=== PATIENT | male | born 1965 | race Two or more races ===

== ENCOUNTER 2019-01-10 21:45 | Emergency (ER) | payer SELFPAY ==
[~2019-01-10] VITALS: Ht 167.6 cm; Wt 77.1 kg
--- NOTE | 2019-01-10 21:45 | NUR ---
ED Nurse Note: Patient was medicate , sleeping.
[2019-01-10 22:05] VITALS: BP 139/87
--- NOTE | 2019-01-10 22:10 | NUR ---
ED Nurse Note: Patient walked in to Er c/o abdominal pain, Deny N/V. AAO x4, VSS at thias time, skin is dry intact.
[2019-01-10] MEDS ORDERED: Isovue-300 100ml vial INJ PRN (22:15)
[2019-01-10] MEDS ORDERED: Morphine Sulfate 4mg/ml Inj (IV USE ONLY) IVP ONE (22:15)
[2019-01-10] MEDS ORDERED: Ketorolac 30mg Inj IV ONE (22:15)
[2019-01-10 22:24] LABS: APPEARANCE,URINE CLEAR; BILIRUBIN, URINE NEGATIVE (NEGATIVE); COLOR,URINE PALE YELLOW; GLUCOSE, URINE (UA) NEGATIVE (NEGATIVE); KETONES,URINE NEGATIVE (NEGATIVE); LEUKOCYTE ESTERASE ,URINE 1+ (NEGATIVE); NITRITE,URINE NEGATIVE (NEGATIVE); PH,URINE 7 (4.5-8.0); PROTEIN,URINE 2+ (NEGATIVE); UROBILINOGEN,URINE NORMAL MG/DL (0.0-1.0)
[2019-01-10 22:28] LABS: ANION GAP 6 mmol/L (5-15); BLOOD UREA NITROGEN 10 mg/dL (7-18); CALCIUM 9.3 MG/DL (8.5-10.1); CARBON DIOXIDE 31 MMOL/L (21-32); CHLORIDE 101 MMOL/L (98-107); CREATININE 1.3 MG/DL (0.55-1.30); POTASSIUM 4.1 MMOL/L (3.5-5.1); SODIUM 138 MMOL/L (136-145)
[2019-01-10 22:29] LABS: BASOPHILS % (AUTO) 0.9 % (0.0-2.0); EOSINOPHILS % (AUTO) 2.7 % (0.0-3.0); HEMATOCRIT 45.6 % (42.0-52.0); HEMOGLOBIN 15.6 G/DL (14.2-18.0); MEAN CORPUSCULAR VOLUME 94 FL (80-99); MONOCYTES % (AUTO) 6.8 % (1.0-10.0); NEUTROPHILS % (AUTO) 69.7 % (45.0-75.0); PLATELET COUNT 286 K/UL (150-450); RED BLOOD COUNT 4.84 M/UL (4.70-6.10); RED CELL DISTRIBUTION WIDTH 12.1 % (11.6-14.8); WHITE BLOOD COUNT 11.6 K/UL (4.8-10.8)
[2019-01-10 22:32] LABS: ALANINE AMINOTRANSFERASE 30 U/L (12-78); ALBUMIN 3.8 G/DL (3.4-5.0); ALBUMIN/GLOBULIN RATIO 0.9 (1.0-2.7); ALKALINE PHOSPHATASE 109 U/L (46-116); ASPARTATE AMINO TRANSFERASE 19 U/L (15-37); BILIRUBIN,TOTAL 0.3 MG/DL (0.2-1.0)
[2019-01-11] MEDS ORDERED: DICYCLOMINE HCL10 MG PO (00:01)
[2019-01-11] MEDS ORDERED: COLACE100 MG ORAL (00:01)
[2019-01-11] MEDS ORDERED: RANITIDINE HCL150 MG ORAL (00:01)
[2019-01-11 00:20] VITALS: BP 139/87
--- NOTE | 2019-01-11 00:20 | NUR ---
ER DISCHARGE NOTE: Patient is cleared to be discharged per ERMD, pt is aox4, on room air, with stable vital signs. pt was given dc and prescription instructions, pt was able to verbalize understanding, pt id band and iv site removed without complications. pt is able to ambulate with steady gait. pt took all belongings.
--- NOTE | 2019-01-11 03:37 | Emergency Room Report ---
History of Present Illness General Chief Complaint: Abdominal Pain Source: Patient Present Illness HPI 53-year-old male presents ED for evaluation. Complaining of abdominal pain. Localized to the left side, sharp, 10 out of 10, nonradiating. Started about 2 weeks ago. Comes and goes. Denies fevers or chills. Denies chest pain or shortness of breath. Denies nausea or vomiting. No other aggravating relieving factors. Denies any other associated symptoms Allergies: Coded Allergies: No Known Allergies (Unverified , 01/10/19) Patient History Past Medical History: none Past Surgical History: none Pertinent Family History: none Social History: Denies: smoking, alcohol use, drug use Immunizations: UTD Reviewed Nursing Documentation: PMH: Agreed; PSxH: Agreed Nursing Documentation-PMH Past Medical History: No Stated History Review of Systems All Other Systems: negative except mentioned in HPI Physical Exam Vital Signs Date Time Temp Pulse Resp B/P (MAP) Pulse Ox O2 Delivery O2 Flow Rate FiO2 01/10/19 21:47 98.6 81 25 139/87 97 Sp02 EP Interpretation: reviewed, normal General Appearance: no apparent distress, alert, GCS 15, non-toxic Head: normocephalic, atraumatic Eyes: bilateral eye normal inspection, bilateral eye PERRL ENT: hearing grossly normal, normal pharynx, no angioedema, normal voice Neck: full range of motion, supple/symm/no masses Respiratory: chest non-tender, lungs clear, normal breath sounds, speaking full sentences Cardiovascular #1: regular rate, rhythm, no edema Cardiovascular #2: 2+ carotid (R), 2+ carotid (L), 2+ radial (R), 2+ radial (L) , 2+ dorsalis pedis (R), 2+ dorsalis pedis (L) Gastrointestinal: normal bowel sounds, soft, non-distended, no guarding, no rebound, tenderness - L sided Rectal: deferred Genitourinary: normal inspection, no CVA tenderness Musculoskeletal: back normal, gait/station normal, normal range of motion, non- tender Neurologic: alert, oriented x3, responsive, motor strength/tone normal, sensory intact, speech normal Psychiatric: judgement/insight normal, memory normal, mood/affect normal, no suicidal/homicidal ideation Reflexes: 3+ bicep (R), 3+ bicep (L), 3+ tricep (R), 3+ tricep (L), 3+ knee (R) , 3+ knee (L) Skin: normal color, no rash, warm/dry, well hydrated Lymphatic: no adenopathy Medical Decision Making Diagnostic Impression: Primary Impression: Adrenal hyperplasia Additional Impression: Abdominal pain Qualified Codes: R10.9 - Unspecified abdominal pain ER Course Hospital Course 53-year-old M presents to ED with abdominal pain Differential diagnosis includes-appendicitis, cholecystitis, small bowel obstruction, gastritis, Clinical course Patient placed on stretcher. After initial history and physical I ordered labs , IV fluids, pain medications and CT scan Labs - no leukocytosis, electrolytes ok, LFTs normal, UA unremarkable CT scan shows no acute pathology, notes L adrenal thickening Upon reassessment, patient states pain has improved. Discuss incidental finding left adrenal gland thickening. hyperplasia vs adenoma. Requires outpatient workup. Patient states he understands. Safe for discharge. Patient follow up. does not have a PMD. We'll provide referrals I feel this is a highly complex case requiring extensive working including EKG/ Rhythm strip, Xray/CT/US, Blood/urine lab work, repeat exams while in ED, and administration of strong opiates/narcotics for pain control, admission to hospital or close patient follow up. Diagnosis - abdominal pain, adrenal hyperplasia Stable and discharged to home. Followup with PMD. Return to ED if symptoms recur or worsen Labs Test 01/10/19 22:05 White Blood Count 11.6 K/UL (4.8-10.8) Red Blood Count 4.84 M/UL (4.70-6.10) Hemoglobin 15.6 G/DL (14.2-18.0) Hematocrit 45.6 % (42.0-52.0) Mean Corpuscular Volume 94 FL (80-99) Mean Corpuscular Hemoglobin 32.2 PG (27.0-31.0) Mean Corpuscular Hemoglobin Concent 34.1 G/DL (32.0-36.0) Red Cell Distribution Width 12.1 % (11.6-14.8) Platelet Count 286 K/UL (150-450) Mean Platelet Volume 5.4 FL (6.5-10.1) Neutrophils (%) (Auto) 69.7 % (45.0-75.0) Lymphocytes (%) (Auto) 20.0 % (20.0-45.0) Monocytes (%) (Auto) 6.8 % (1.0-10.0) Eosinophils (%) (Auto) 2.7 % (0.0-3.0) Basophils (%) (Auto) 0.9 % (0.0-2.0) Urine Color Pale yellow Urine Appearance Clear Urine pH 7 (4.5-8.0) Urine Specific [place] 1.010 (1.005-1.035) Urine Protein 2+ (NEGATIVE) Urine Glucose (UA) Negative (NEGATIVE) Urine Ketones Negative (NEGATIVE) Urine Blood 3+ (NEGATIVE) Urine Nitrite Negative (NEGATIVE) Urine Bilirubin Negative (NEGATIVE) Urine Urobilinogen Normal MG/DL (0.0-1.0) Urine Leukocyte Esterase 1+ (NEGATIVE) Urine RBC 5-10 /HPF (0 - 0) Urine WBC 2-4 /HPF (0 - 0) Urine Squamous Epithelial Cells None /LPF (NONE/OCC) Urine Amorphous Sediment Few /LPF (NONE) Urine Bacteria Few /HPF (NONE) Sodium Level 138 MMOL/L (136-145) Potassium Level 4.1 MMOL/L (3.5-5.1) Chloride Level 101 MMOL/L (98-107) Carbon Dioxide Level 31 MMOL/L (21-32) Anion Gap 6 mmol/L (5-15) Blood Urea Nitrogen 10 mg/dL (7-18) Creatinine 1.3 MG/DL (0.55-1.30) Estimat Glomerular Filtration Rate 57.7 mL/min (>60) Glucose Level 131 MG/DL (74-106) Calcium Level 9.3 MG/DL (8.5-10.1) Total Bilirubin 0.3 MG/DL (0.2-1.0) Aspartate Amino Transf (AST/SGOT) 19 U/L (15-37) Alanine Aminotransferase (ALT/SGPT) 30 U/L (12-78) Alkaline Phosphatase 109 U/L (46-116) Total Protein 7.8 G/DL (6.4-8.2) Albumin 3.8 G/DL (3.4-5.0) Globulin 4.0 g/dL Albumin/Globulin Ratio 0.9 (1.0-2.7) Lipase 153 U/L (73-393) CT/MRI/US Diagnostic Results CT/MRI/US Diagnostic Results : Imaging Test Ordered: CT A/P Impression No acute findings involving the solid abdominal organs. Medial left cortical renal cyst present. Diffuse thickening left adrenal gland indeterminate but can be seen with hyperplasia or adenoma. Further evaluation can be obtained with dedicated renal protocol imaging. The gallbladder and biliary tree are unremarkable. The lower GI tract demonstrates no obstruction, pneumatosis or focal wall thickening. The appendix is normal. Mild to moderate enlargement of the prostate gland. The urinary bladder is moderately distended and demonstrates at least mild wall thickening with reticulation that can be seen with chronic outlet obstruction. Mild adjacent stranding is present and acute cystitis cannot be excluded. Last Vital Signs Date Time Temp Pulse Resp B/P (MAP) Pulse Ox O2 Delivery O2 Flow Rate FiO2 01/10/19 22:51 98.6 01/10/19 22:05 25 139/87 97 01/10/19 22:05 81 Status: improved Disposition: HOME, SELF-CARE Condition: Stable Scripts Dicyclomine Hcl* (DICYCLOMINE HCL*) 10 Mg Capsule 10 MG PO QID for 5 Days, CAP Prov: Rosalio Thomson MD 01/11/19 Docusate Sodium* (COLACE*) 100 Mg Capsule 100 MG ORAL THREE TIMES A DAY, #30 CAP Prov: Rosalio Thomson MD 01/11/19 Ranitidine Hcl* (ZANTAC*) 150 Mg Tablet 150 MG ORAL TWICE A DAY, #30 TAB Prov: Rosalio Thomson MD 01/11/19 Referrals: [facility] Patient Instructions: Abdominal Pain, Adult, Aldosterone Test Rosalio Thomson MD Jan 11, 2019 03:37
--- NOTE | 2019-01-11 08:42 | Diagnostic Imaging Report ---
Indication: Abdominal pain Technique: Continuous helical transaxial imaging of the abdomen and pelvis was obtained from the lung bases to the pubic symphysis during intravenous contrast administration. Coronal 2-D reformats were also obtained. Study obtained in a Siemens sensation [address] Automatic Exposure Control was utilized. Total Dose length Product (DLP): 712.[address] Dose Index Volume (CTDIvol): 14.36 mGy Comparison: None Findings: There is posterior basilar atelectasis. Gallbladder, liver and pancreas, spleen appear unremarkable. The adrenal glands appear prominent bilaterally which 80 there are gyriform shape. There is a small cyst present within the left kidney measuring 1.5 cm. There is a second left renal cyst measuring 1.6 x 0.7 cm in the lower pole. Aorta is mildly calcified. Diverticula noted in the colon. Appendix is normal. Thickening of the urinary bladder wall demonstrated. Bilateral inguinal hernias containing fat demonstrated. Prostate is prominent. Degenerative changes of the lumbar spine demonstrated particularly at L1-2 which shows moderate degenerative disc disease. IMPRESSION: No acute findings. Bilateral adrenal hyperplasia. No discrete mass. Correlate clinically. Normal appendix Basilar atelectasis Left renal cysts Atherosclerotic vascular disease Bilateral inguinal hernias containing fat Thickening of the bladder wall. Correlate for cystitis Diverticulosis of the colon [facility] has communicated the preliminary results to the Emergency Department. Their findings are largely concordant with this report. The CT scanner at [facility] is accredited by the [employer] and the scans are performed using dose optimization techniques as appropriate to a performed exam including Automatic Exposure control.
== END 2019-01-11 00:20 | disposition home or self-care (01) ==
LOC: EMR 21:59
DX: R10.9 Unspecified abdominal pain (principal); E27.8 Other specified disorders of adrenal gland; N40.0 Benign prostatic hyperplasia without lower urinary tract symptoms
CPT/HCPCS: 36415; 74177; 80053; 81003; 83690; 85025; 96361; 96374; 96375; 99284; J1885; J2270; J2405; Q9967; S0028